=== PATIENT | male | born 1960 | race Caucasian/White ===

== ENCOUNTER 2021-03-11 12:01 | Emergency (ER) | payer BC ==
[2021-03-11] MEDS ORDERED: Aspirin 81 MG Tab.Chew PO ONE (12:16)
[2021-03-11] MEDS ORDERED: Metoprolol Tartrate 50 MG Tab PO ONE (12:19)
--- NOTE | 2021-03-11 12:25 | EDM.PDOC ---
ED HPI GENERAL MEDICAL PROBLEM - General Chief Complaint: Cardiovascular Problem Stated Complaint: SHORTNESS OF BREATH Time Seen by Provider: 03/11/21 12:10 Source of Information: Reports: Patient, Old Records, RN History Limitations: Reports: No Limitations - History of Present Illness INITIAL COMMENTS - FREE TEXT/NARRATIVE: 61 yo male presented to the clinic today for about 2 weeks of NGUYEN and orthopnea and was referred to the ER. Is not aware of a hx of HTN, but his last BP check was about 2 yrs ago. Is not aware of fast or irregular heart beats. No chest pain. Has never smoked. Onset: Gradual Duration: Week(s): (2), Getting Worse Location: Reports: Chest Quality: Reports: Other (no pain) Severity: Mild (SOB) Improves with: Reports: Rest Worsens with: Reports: Movement (exertion) Context: Reports: Other (See HPI) Associated Symptoms: Reports: Shortness of Breath. Denies: Chest Pain, Cough, Fever/Chills, Nausea/Vomiting Treatments RN CRITICAL CARE: Reports: Other (see below) (none) - Related Data Allergies Allergy/AdvReac Type Severity Reaction Status Date / Time No Known Allergies Allergy Verified 07/02/13 20:12 Home Meds: Home Meds Albuterol [Proventil HFA] 2 puff INH Q4H PRN #1 ea 03/11/21 [Rx] dilTIAZem HCL [Diltiazem 24Hr ER] 360 mg PO DAILY #15 cap.er.24h 03/11/21 [Rx] metFORMIN HCl [Metformin HCl ER] 1,000 mg PO BID #120 tab.er.24h 03/11/21 [Rx] Past Medical History - Past Health History Medical/Surgical History: Denies Medical/Surgical History Social & Family History - Tobacco Use Tobacco Use Status *Q: Never Tobacco User - Caffeine Use Caffeine Use: Reports: Soda - Recreational Drug Use Recreational Drug Use: No ED ROS GENERAL - Review of Systems Review Of Systems: See Below Constitutional: Reports: No Symptoms HEENT: Reports: No Symptoms Respiratory: Reports: Shortness of Breath Cardiovascular: Reports: Dyspnea on Exertion, Orthopnea. Denies: Chest Pain, Palpitations Endocrine: Reports: No Symptoms GI/Abdominal: Reports: No Symptoms : Reports: No Symptoms Musculoskeletal: Reports: No Symptoms Skin: Reports: No Symptoms ED EXAM, GENERAL - Physical Exam Exam: See Below Exam Limited By: No Limitations General Appearance: Alert, WD/WN, No Apparent Distress, Obese Eye Exam: Bilateral Eye: Normal Inspection Ears: Normal External Exam, Normal Canal, Hearing Grossly Normal Ear Exam: Bilateral Ear: Auricle Normal, Canal Normal Nose: Normal Inspection, No Blood Throat/Mouth: Normal Inspection, Normal Lips, Normal Oropharynx, No Airway Compromise Head: Atraumatic, Normocephalic Neck: Normal Inspection Respiratory/Chest: No Respiratory Distress, Lungs Clear, Normal Breath Sounds, No Accessory Muscle Use Cardiovascular: Regular Rate, Rhythm, No Edema GI/Abdominal: Normal Bowel Sounds, Soft, Non-Tender, No Distention Extremities: Normal Inspection, Normal Range of Motion, Non-Tender, No Pedal Edema Neurological: Alert, Oriented, CN II-XII Intact, Normal Cognition, No Motor/Sensory Deficits Psychiatric: Normal Affect, Normal Mood Skin Exam: Warm, Dry, Intact, Normal Color, No Rash #1 Interpretation EKG Date: 03/11/21 Time: 12:15 Rhythm: A-Fib Rate (Beats/Min): 141 [place]: Normal P-Wave: Absent QRS: Normal ST-T: Normal QT: Normal Comparison: NA - No Prior EKG Course - Vital Signs Last Recorded V/S: Last Vital Signs Temp 36.3 C 03/11/21 12:18 Pulse 123 H 03/11/21 12:24 Resp 19 03/11/21 12:18 BP 158/101 H 03/11/21 12:24 Pulse Ox 97 03/11/21 12:18 - Orders/Labs/Meds Orders: Active Orders 24 hr Category Date Time Status Cardiac Monitoring [RC] .As Directed Care 03/11/21 12:15 Active RT Aerosol Therapy [RC] ASDIRECTED Care 03/11/21 13:45 Active EKG 12 Lead [EK] Routine Ther 03/11/21 12:16 Ordered Labs: Laboratory Tests 03/11/21 03/11/21 Range/Units 12:25 12:25 WBC 8.5 (4.5-11.0) K/uL RBC 4.86 (4.30-5.90) M/uL Hgb 14.1 (12.0-15.0) g/dL Hct 42.6 (40.0-54.0) % MCV 88 (80-98) fL MCH 29 (27-31) pg MCHC 33 (32-36) % Plt Count 189 (150-400) K/uL Sodium 135 L (140-148) mmol/L Potassium 4.1 (3.6-5.2) mmol/L Chloride 99 L (100-108) mmol/L Carbon Dioxide 28 (21-32) mmol/L Anion Gap 12.1 (5.0-14.0) mmol/L BUN 10 (7-18) mg/dL Creatinine 1.0 (0.8-1.3) mg/dL Est Cr Clr Drug Dosing 70.89 mL/min Estimated GFR (MDRD) > 60 (>60) Glucose 221 H (74-106) mg/dL Calcium 8.7 (8.5-10.1) mg/dL Troponin I < 0.017 (0.000-0.056) ng/mL TSH, Ultra Sensitive 2.070 (0.358-3.740) uIU/mL Meds: Medications Discontinued Medications Generic Name Dose Route Start Last Admin Trade Name Nateq PRN Reason Stop Dose Admin Albuterol 2.5 mg 03/11/21 13:44 03/11/21 14:08 Albuterol 0.083% 2.5 Mg/3 Ml Neb Soln NEB 03/11/21 13:45 2.5 mg ONETIME ONE Administration Aspirin 324 mg 03/11/21 12:16 03/11/21 12:24 Aspirin 81 Mg Tab.Chew PO 03/11/21 12:17 324 mg ONETIME ONE Administration Diltiazem HCl 60 mg 03/11/21 13:05 03/11/21 13:13 Diltiazem Ir 30 Mg Tab PO 03/11/21 13:06 60 mg ONETIME ONE Administration Furosemide 40 mg 03/11/21 13:07 03/11/21 13:12 Furosemide 40 Mg Tab PO 03/11/21 13:08 40 mg ONETIME ONE Administration Metformin HCl 1,000 mg 03/11/21 13:02 03/11/21 13:13 Metformin 500 Mg Tab PO 03/11/21 13:03 1,000 mg ONETIME STA Administration Metoprolol Tartrate 50 mg 03/11/21 12:19 03/11/21 12:24 Metoprolol Tartrate 50 Mg Tab PO 03/11/21 12:20 50 mg ONETIME ONE Administration - Radiology Interpretation Free Text/Narrative:: CXR-small effusions, mild CHF, COPD - Re-Assessments/Exams Free Text/Narrative Re-Assessment/Exam: 03/11/21 14:21 Coughing some improved after albuterol. HR still too fast, but is better. Departure - Departure Time of Disposition: 14:35 Disposition: Home, Self-Care 01 Condition: Fair Clinical Impression: Atrial fibrillation with RVR, Elevated blood sugar, Bronchospasm HTN (hypertension) Qualifiers: Hypertension type: unspecified Qualified Code(s): I10 - Essential (primary) hypertension Instructions: Hyperglycemia, [id number], Bronchospasm, Adult, [id number], Atrial Fibrillation, [id number] Referrals: PCP,None [Primary Care Provider] - Forms: ED Department Discharge Additional Instructions: Take the diltiazem every 24 hrs for reduction of your BP and for controlling your heart rate. Take an aspirin tablet daily with a meal. Use the albuterol as needed for coughing. Avoid smoke exposure. Rest today and tomorrow. Avoid salt or salty foods. Call and schedule an appt to be seen in the clinic Wednesday morning. You will need to have your heart rate and BP reassessed and will likely need to be placed on something stronger than aspirin to reduce the risk of a stroke from your atrial fibrillation. Return as needed. Sepsis Event Note (ED) - Evaluation Sepsis Screening Result: No Definite Risk - Focused Exam Vital Signs: Vital Signs Temp Pulse Pulse Resp BP BP Pulse Ox 03/11/21 12:24 123 H 158/101 H 03/11/21 12:18 36.3 C 136 H 19 158/101 H 97 - My Orders Last 24 Hours: My Active Orders 03/11/21 12:15 Cardiac Monitoring [RC] .As Directed 03/11/21 12:16 EKG 12 Lead [EK] Routine 03/11/21 13:45 RT Aerosol Therapy [RC] ASDIRECTED - Assessment/Plan Last 24 Hours: My Active Orders 03/11/21 12:15 Cardiac Monitoring [RC] .As Directed 03/11/21 12:16 EKG 12 Lead [EK] Routine 03/11/21 13:45 RT Aerosol Therapy [RC] ASDIRECTED
[2021-03-11] MEDS ORDERED: metFORMIN 500 MG Tab PO STA (13:02)
[2021-03-11] MEDS ORDERED: Diltiazem IR 30 MG Tab PO ONE (13:05)
[2021-03-11] MEDS ORDERED: Furosemide 40 MG Tab PO ONE (13:07)
--- NOTE | 2021-03-11 13:11 | CR ---
CHEST: 2 view CLINICAL HISTORY:Atrial fib COMPARISON:None FINDINGS: The heart is enlarged. Pulmonary vascularity is cephalized. There is diffuse interstitial prominence. There is some patchy pleural parenchymal scarring likely some underlying pulmonary fibrosis. There is a minimal effusion on the right.. IMPRESSION: Bilateral interstitial infiltrates is likely some interstitial pulmonary edema from CHF superimposed over some chronic lung changes
[2021-03-11] MEDS ORDERED: Albuterol 0.083% 2.5 MG/3 ML Neb Soln NEB ONE (13:44)
[2021-03-11] MEDS ORDERED: Diltiazem 180 MG Cap.CD PO ONE (14:21)
== END 2021-03-11 14:51 | disposition home or self-care (01) ==
LOC: JP.ED 12:01
DX: J98.01 Acute bronchospasm (principal); I48.91 Unspecified atrial fibrillation; I10 Essential (primary) hypertension; R73.9 Hyperglycemia, unspecified
CPT/HCPCS: 36415; 71046; 80048; 84443; 84484; 85027; 93005; 94640; 99285; A9270

== ENCOUNTER 2021-03-15 22:48 | Emergency (ER) | payer BC ==
[2021-03-15] MEDS ORDERED: Albuterol/Ipratropium 3.0-0.5 MG/3 ML Neb Soln NEB ONE (23:18)
--- NOTE | 2021-03-16 00:50 | EDM.PDOC ---
ED HPI GENERAL MEDICAL PROBLEM - General Chief Complaint: Respiratory Problem Stated Complaint: TROUBLE BREATHING, VOMITING Time Seen by Provider: 03/15/21 23:15 Source of Information: Reports: Patient, Family History Limitations: Reports: No Limitations - History of Present Illness INITIAL COMMENTS - FREE TEXT/NARRATIVE: 61-year-old male with a chronic cough, had some increasing shortness of breath recently and was seen in the clinic initially and sent over to the emergency room with atrial fibrillation with RVR. He was placed on some rate control medications and has a cardiology consultation coming up but tonight he felt like his belly was distended, uncomfortable, he cannot take a deep breath and just did not feel well. No fevers or chills, no nausea or vomiting, no chest pain. Onset: Gradual Duration: Day(s): (Last 2 days) Location: Reports: Abdomen (Fullness and distention, also feels like he is moving less urine) abd pain Pain Score (Numeric/FACES): 2 - Related Data Allergies Allergy/AdvReac Type Severity Reaction Status Date / Time No Known Allergies Allergy Verified 03/15/21 23:27 Home Meds: Home Meds Albuterol [Proventil HFA] 2 puff INH Q4H PRN #1 ea 03/11/21 [Rx] dilTIAZem HCL [Diltiazem 24Hr ER] 360 mg PO DAILY #15 cap.er.24h 03/11/21 [Rx] metFORMIN HCl [Metformin HCl ER] 1,000 mg PO BID #120 tab.er.24h 03/11/21 [Rx] Furosemide [Lasix] 20 mg PO DAILY 03/15/21 [History] Past Medical History - Past Health History Medical/Surgical History: Denies Medical/Surgical History Cardiovascular History: Reports: Afib Respiratory History: Reports: Other (See Below) Other Respiratory History: has had a cough since childhood Endocrine/Metabolic History: Reports: Diabetes, Type II - Infectious Disease History Infectious Disease History: Reports: Chicken Pox Social & Family History - Tobacco Use Tobacco Use Status *Q: Never Tobacco User - Caffeine Use Caffeine Use: Reports: Soda - Recreational Drug Use Recreational Drug Use: No ED ROS GENERAL - Review of Systems Review Of Systems: See Below Constitutional: Reports: Malaise. Denies: Fever, Chills HEENT: Denies: Throat Pain Respiratory: Reports: Shortness of Breath, Cough. Denies: Sputum Cardiovascular: Denies: Chest Pain GI/Abdominal: Reports: Abdominal Pain, Distension. Denies: Nausea, Vomiting : Reports: Other (Decreased urinary frequency and volume) Musculoskeletal: Reports: Other (Feels like his legs are swelling) Skin: Reports: No Symptoms ED EXAM, GENERAL - Physical Exam Exam: See Below Exam Limited By: No Limitations General Appearance: Alert, No Apparent Distress, Other (Frequent cough) Eye Exam: Bilateral Eye: Normal Inspection Head: Atraumatic Respiratory/Chest: No Respiratory Distress, Decreased Breath Sounds, Rales (Scattered diffuse rales and diffuse decreased breath sounds) Cardiovascular: Irregularly Irregular. No: Tachycardia GI/Abdominal: Normal Bowel Sounds, Tender (Minimal discomfort with palpation diffusely but no focal pain or rebound) Extremities: Normal Inspection. No: Pedal Edema (I do not appreciate peripheral edema) Neurological: Alert, Oriented Psychiatric: Normal Affect, Normal Mood Skin Exam: Warm, Dry Course - Vital Signs Last Recorded V/S: Last Vital Signs Temp 97.1 F 03/16/21 00:32 Pulse 65 03/16/21 00:32 Resp 21 H 03/16/21 00:32 BP 124/70 03/16/21 00:32 Pulse Ox 91 L 03/16/21 00:32 - Orders/Labs/Meds Orders: Active Orders 24 hr Category Date Time Status Chest 2V [CR] Routine Exams 03/15/21 23:18 Taken Labs: Laboratory Tests 03/15/21 03/15/21 03/15/21 Range/Units 23:28 23:30 23:30 WBC 9.2 (4.5-11.0) K/uL RBC 4.85 (4.30-5.90) M/uL Hgb 14.2 (12.0-15.0) g/dL Hct 42.2 (40.0-54.0) % MCV 87 (80-98) fL MCH 29 (27-31) pg MCHC 34 (32-36) % Plt Count 216 (150-400) K/uL Neut % (Auto) 72.2 H (36-66) % Lymph % (Auto) 19.7 L (24-44) % [place] % (Auto) 6.9 H (2-6) % Eos % (Auto) 0.9 L (2-4) % Baso % (Auto) 0.3 (0-1) % Sodium 130 L (140-148) mmol/L Potassium 4.0 (3.6-5.2) mmol/L Chloride 95 L (100-108) mmol/L Carbon Dioxide 24 (21-32) mmol/L Anion Gap 15.0 H (5.0-14.0) mmol/L BUN 18 D (7-18) mg/dL Creatinine 1.2 (0.8-1.3) mg/dL Est Cr Clr Drug Dosing 59.07 mL/min Estimated GFR (MDRD) > 60 (>60) Glucose 177 H (74-106) mg/dL Calcium 8.9 (8.5-10.1) mg/dL Total Bilirubin 1.3 H (0.2-1.0) mg/dL AST 21 (15-37) U/L ALT 29 (12-78) U/L Alkaline Phosphatase 87 (46-116) U/L Troponin I < 0.017 (0.000-0.056) ng/mL Total Protein 7.5 (6.4-8.2) g/dL Albumin 3.6 (3.4-5.0) g/dL Globulin 3.9 H (2.3-3.5) g/dL Albumin/Globulin Ratio 0.9 L (1.2-2.2) SARS CoV-2 RNA Rapid KEHINDE Negative Meds: Medications Discontinued Medications Generic Name Dose Route Start Last Admin Trade Name Freq PRN Reason Stop Dose Admin Albuterol/Ipratropium 3 ml 03/15/21 23:18 03/15/21 23:52 Albuterol/Ipratropium 3.0-0.5 Mg/3 Ml Neb Soln NEB 03/15/21 23:19 3 ml ONETIME ONE Administration - Re-Assessments/Exams Free Text/Narrative Re-Assessment/Exam: 03/16/21 00:48 Covid was tested and was negative, then the patient was given a DuoNeb which helped his breathing. 2 view chest x-ray was stable from 3 days ago. CBC CMP and troponin were all negative and reassuring. A CT of the abdomen and pelvis was then obtained without contrast 03/16/21 04:04 Preliminary report: Small bilateral effusions with interlobular septal thickening. This suggests pulmonary edema. No bowel obstruction, free air, or drainable fluid collection in the abdomen/pelvis. No pneumatosis. Normal caliber appendix. Ventral wall abdominal hernia containing fat. No enteric compromise. Patient has only taken 1 dose of Lasix so far, started today. I think he has an element of reactive airway disease or pulmonary fibrosis as well, so will be placed on a Medrol Dosepak but I also want him to double the Lasix to 40 mg a day for the next 2 or 3 days. Instead of waiting for his cardiology consult in 1 month, I asked him to recheck with his primary provider next week. His atrial fibrillation is still present but his rate is well controlled. Departure - Departure Time of Disposition: 01:34 Disposition: Home, Self-Care 01 Clinical Impression: Pleural effusion CHF (congestive heart failure) Qualifiers: Heart failure type: combined systolic and diastolic Heart failure chronicity: acute on chronic Qualified Code(s): I50.43 - Acute on chronic combined systolic (congestive) and diastolic (congestive) heart failure - Discharge Information Instructions: Pleural Effusion, Heart Failure, Diagnosis, [id number] Referrals: PCP,None [Primary Care Provider] - Forms: ED Department Discharge Care Plan Goals: Take tapering steroids as directed starting in the morning, take 40 mg of furosemide a day instead of 20 mg as prescribed for at least the next 2 or 3 days. Avoid extra salt intake, and recheck next week with your primary provider. Return sooner if worsening such as fever or increased difficulty breathing. Sepsis Event Note (ED) - Evaluation Sepsis Screening Result: Possible Sepsis Risk - Focused Exam Vital Signs: Vital Signs Temp Pulse Resp BP Pulse Ox 03/16/21 00:32 97.1 F 65 21 H 124/70 91 L 03/15/21 23:58 82 34 H 141/93 H 88 L 03/15/21 23:15 97.3 F 84 18 159/83 H 89 L 03/15/21 23:06 97.3 F 84 18 159/83 H 89 L - My Orders Last 24 Hours: My Active Orders 03/15/21 23:18 Chest 2V [CR] Routine - Assessment/Plan Last 24 Hours: My Active Orders 03/15/21 23:18 Chest 2V [CR] Routine
--- NOTE | 2021-03-16 02:08 | CRLCT ---
For Patients: As a result of the Century Cures Act, medical imaging exams and procedure reports are released immediately into your electronic medical record. You may view this report before your referring provider. If you have questions, please contact your health care provider. INDICATION: Distension. TECHNIQUE: CT abdomen and pelvis without contrast. COMPARISON: None. FINDINGS: Lower chest: Heart size is within normal limits. No pericardial effusion. There are small bilateral pleural effusions with resultant mild compressive bibasilar atelectasis, as well as interlobular septal thickening. These findings suggest interstitial edema. Clinically correlate. Liver: The unenhanced liver appears unremarkable. Spleen: Normal size. Pancreas: The unenhanced pancreas appears unremarkable. Gallbladder and bile ducts: No calcified stones are seen within the gallbladder. No significant bile duct dilatation. Kidneys: The unenhanced kidneys are unremarkable. Specifically, no hydronephrosis. Adrenal glands: Unremarkable. GI tract: The stomach is unremarkable. Incidental duodenal diverticuli. No abnormally dilated small or large bowel. Normal appendix. Vascular structures: Mild atherosclerotic changes. Normal caliber abdominal aorta. Lymph nodes: No pathologically enlarged lymph nodes are identified on this unenhanced study. Miscellaneous: Moderate-sized fat containing umbilical hernia, without evidence of an acute complication. No free air. No free fluid is seen in either the abdomen or pelvis. Pelvic Organs: Unremarkable urinary bladder and prostate. Bones: No acute abnormality. Degenerative changes. Incidental note of transitional lumbosacral anatomy. IMPRESSION: 1. No evidence of an acute abnormality in the abdomen or pelvis on this unenhanced study. 2. Incidental nonacute findings in the abdomen and pelvis as noted above. 3. Interstitial edema and small bilateral pleural effusions are noted in the lower chest, suggestive of pulmonary edema. Clinically correlate. Please note that all CT scans at this facility use dose modulation, iterative reconstruction, and/or weight-based dosing when appropriate to reduce radiation dose to as low as reasonably achievable. Dictated by Brant Mathew MD @ 03/17/2021 3:03:51 PM (Electronically Signed)
--- NOTE | 2021-03-17 12:35 | CR ---
CHEST: 2 view CLINICAL HISTORY:Atrial fibrillation COMPARISON:03/11/2021 Findings: Heart is enlarged. Pulmonary vascularity is mildly some cephalized. There is some diffuse interstitial prominence. This is increased slightly since prior study. Some of this may be chronic. There is blunting of the right costophrenic angle similar to prior study. Impression: Cardiomegaly with vascular cephalization and interstitial prominence suggests some ongoing CHF. There is slight increase in compared to prior study. Some of this may be chronic. Small right pleural effusion
== END 2021-03-16 01:36 | disposition home or self-care (01) ==
LOC: JP.ED 22:48
DX: J90 Pleural effusion, not elsewhere classified (principal); I50.43 Acute on chronic combined systolic (congestive) and diastolic (congestive) heart failure; I48.91 Unspecified atrial fibrillation; E11.9 Type 2 diabetes mellitus without complications; Z79.84 Long term (current) use of oral hypoglycemic drugs; Z79.899 Other long term (current) drug therapy; Z20.822 Contact with and (suspected) exposure to COVID-19
CPT/HCPCS: 36415; 71046; 71046-26; 74176; 80053; 84484; 85025; 94640; 99285-25; J7620-GY; U0002

== ENCOUNTER 2022-02-07 15:27 | Emergency (ER) | payer BC ==
[2022-02-07 18:48] LABS: ESTIMATED GFR 97 mL/min (>60)
== END 2022-02-07 19:44 | disposition home or self-care (01) ==
LOC: JP.ED 15:27
DX: R53.83 Other fatigue (principal); B34.9 Viral infection, unspecified; I10 Essential (primary) hypertension; E11.9 Type 2 diabetes mellitus without complications; Z79.899 Other long term (current) drug therapy; Z79.84 Long term (current) use of oral hypoglycemic drugs; Z79.01 Long term (current) use of anticoagulants; Z20.822 Contact with and (suspected) exposure to COVID-19
CPT/HCPCS: 36415; 71045; 71045-26; 80053; 82728; 83615; 83735; 84145; 85025; 85379; 85651; 86140; 99281; 99283; U0002

== ENCOUNTER 2022-09-22 07:00 | Day surgery (SDC) | payer BC ==
[~2022-09-22 07:00] MED LIST: Lactated Ringers 1,000 ML IV SCH
[2022-09-22] MEDS ORDERED: fentaNYL 50 MCG/ML SDV ONE (07:23)
[2022-09-22] MEDS ORDERED: Propofol 200 MG/20 ML SDV ONE (07:23)
[2022-09-22] MEDS ORDERED: Midazolam 1 MG/ML 2 ML SDV ONE (07:23)
[2022-09-22] MEDS ORDERED: Lactated Ringers 1,000 ML IV SCH (07:30)
== END 2022-09-22 09:50 | disposition home or self-care (01) ==
LOC: JP.SDS 07:00
PROVIDERS: ATTEND Family Medicine
DX: Z12.11 Encounter for screening for malignant neoplasm of colon (principal); D12.3 Benign neoplasm of transverse colon; D12.4 Benign neoplasm of descending colon; K62.1 Rectal polyp; E11.9 Type 2 diabetes mellitus without complications; I48.91 Unspecified atrial fibrillation; I50.9 Heart failure, unspecified; I42.9 Cardiomyopathy, unspecified
CPT/HCPCS: 45380; 88305; J2250; J2704; J3010; J7120

== ENCOUNTER 2022-09-30 19:27 | Inpatient (IN) | payer BC ==
[2022-09-30] MEDS ORDERED: Lidocaine 1% 5 ML VIAL INJECT ONE (20:57)
[2022-09-30] MEDS ORDERED: Sodium Chloride 0.9% 10 ML Syringe FLUSH PRN (20:58)
[2022-09-30] MEDS ORDERED: Bacitracin Oint 1 GM U/D Packet TOP ONE (20:59)
[2022-09-30] MEDS ORDERED: HYDROmorphone 0.5 MG/0.5 ML Syringe IVPUSH ONE (20:59)
[2022-09-30 21:17] LABS: ESTIMATED GFR 76 mL/min (>60)
[2022-09-30 22:18] LABS: CORONAVIRUS COVID-19 NAA NEGATIVE (NEGATIVE)
[2022-09-30] MEDS ORDERED: Albuterol 0.083% 2.5 MG/3 ML Neb Soln NEB PRN (23:15)
[2022-09-30] MEDS ORDERED: Ondansetron 4 MG/2 ML SDV IV PRN (23:15)
[2022-09-30] MEDS ORDERED: HYDROmorphone 0.5 MG/0.5 ML Syringe IVPUSH PRN (23:15)
[2022-09-30] MEDS ORDERED: Enoxaparin 40 MG/0.4 ML Syringe SUBCUT SCH (23:15)
[2022-09-30] MEDS ORDERED: Acetaminophen/HYDROcodone 325-5 MG Tab PO PRN (23:15)
[2022-09-30] MEDS ORDERED: Ondansetron 4 MG Tab.DIS PO PRN (23:15)
[2022-09-30] MEDS ORDERED: Magnesium Hydroxide 400 MG/5 ML Susp 30 ML Cup PO PRN (23:15)
[2022-09-30] MEDS ORDERED: Melatonin 3 MG Tab PO PRN (23:15)
[2022-09-30] MEDS: metFORMIN 500 MG Tab PO SCH (23:39)
[2022-09-30] MEDS: Acetaminophen 325 MG Tab PO PRN (23:39)
[2022-09-30] MEDS: Insulin Lispro 100 Unit/ML 3 ML KwikPen SUBCUT SCH (23:40)
[2022-10-01] MEDS ORDERED: Meropenem 1 GM in Sodium Chloride 0.9% 100 ML IV SCH (00:45)
[2022-10-01] MEDS ORDERED: Insulin Lispro 100 Unit/ML 3 ML KwikPen SUBCUT SCH (07:00)
[2022-10-01] MEDS: Insulin Lispro 100 Unit/ML 3 ML KwikPen SUBCUT SCH ×4 (08:30→21:35)
[2022-10-01] MEDS: Acetaminophen 325 MG Tab PO PRN ×2 (08:31→19:39)
[2022-10-01] MEDS: Meropenem 1 GM in Sodium Chloride 0.9% 100 ML IV SCH ×2 (08:32→16:37)
[2022-10-01] MEDS: Lisinopril 5 MG Tab PO SCH (08:34)
[2022-10-01] MEDS: metFORMIN 500 MG Tab PO SCH ×2 (08:34→16:37)
[2022-10-01] MEDS: Lactobacillus Rhamnosus GG (Probiotic) Cap PO SCH ×2 (08:34→21:36)
[2022-10-01] MEDS: Metoprolol Succinate 50 MG Tab.ER PO SCH (08:35)
[2022-10-01] MEDS ORDERED: Iopamidol 612 MG/ML 100 ML Bottle IV SCH (20:00)
[2022-10-01] MEDS ORDERED: Sodium Chloride 0.9% 50 ML IV SCH (20:00)
[2022-10-01] MEDS: Enoxaparin 40 MG/0.4 ML Syringe SUBCUT SCH (21:37)
[2022-10-02] MEDS: Meropenem 1 GM in Sodium Chloride 0.9% 100 ML IV SCH ×3 (00:08→18:41)
[2022-10-02] MEDS: Acetaminophen 325 MG Tab PO PRN ×4 (04:56→23:11)
[2022-10-02] MEDS: Insulin Lispro 100 Unit/ML 3 ML KwikPen SUBCUT SCH ×2 (08:36→13:42)
[2022-10-02] MEDS: Lactobacillus Rhamnosus GG (Probiotic) Cap PO SCH ×2 (08:40→21:31)
[2022-10-02] MEDS: Metoprolol Succinate 50 MG Tab.ER PO SCH (08:40)
[2022-10-02] MEDS: Lisinopril 5 MG Tab PO SCH (08:40)
[2022-10-02] MEDS: metFORMIN 500 MG Tab PO SCH ×2 (08:40→18:40)
[2022-10-02] MEDS: Enoxaparin 40 MG/0.4 ML Syringe SUBCUT SCH (21:32)
[2022-10-03] MEDS: Meropenem 1 GM in Sodium Chloride 0.9% 100 ML IV SCH ×3 (00:38→16:38)
[2022-10-03] MEDS: Acetaminophen 325 MG Tab PO PRN ×3 (04:39→21:34)
[2022-10-03] MEDS: metFORMIN 500 MG Tab PO SCH ×2 (08:17→17:23)
[2022-10-03] MEDS: Lactobacillus Rhamnosus GG (Probiotic) Cap PO SCH ×2 (08:18→21:34)
[2022-10-03] MEDS: Lisinopril 5 MG Tab PO SCH (08:18)
[2022-10-03] MEDS: Metoprolol Succinate 50 MG Tab.ER PO SCH (08:18)
[2022-10-03] MEDS: SEMAGLUTIDE 7 MG PO SCH (14:40)
[2022-10-03] MEDS ORDERED: Ketorolac 30 MG/ML SDV IVPUSH ONE (16:08)
[2022-10-03] MEDS: Enoxaparin 40 MG/0.4 ML Syringe SUBCUT SCH (21:34)
[2022-10-04] MEDS: Meropenem 1 GM in Sodium Chloride 0.9% 100 ML IV SCH ×2 (00:16→08:38)
[2022-10-04] MEDS: Acetaminophen 325 MG Tab PO PRN ×2 (04:15→11:59)
[2022-10-04] MEDS: SEMAGLUTIDE 7 MG PO SCH ×2 (07:52→08:38)
[2022-10-04] MEDS: Lactobacillus Rhamnosus GG (Probiotic) Cap PO SCH (08:37)
[2022-10-04] MEDS: metFORMIN 500 MG Tab PO SCH (08:37)
[2022-10-04] MEDS: Metoprolol Succinate 50 MG Tab.ER PO SCH (08:38)
[2022-10-04] MEDS: Lisinopril 5 MG Tab PO SCH (08:38)
[2022-10-04] MEDS ORDERED: Sodium Chloride 0.9% 50 ML IV SCH (10:00)
[2022-10-04] MEDS ORDERED: Iopamidol 612 MG/ML 100 ML Bottle IV PRN (10:30)
== END 2022-10-04 14:00 | DRG 952 ==
LOC: JP.ED 19:27 → JP.MS 22:15 → OBSVTOIN 10-02 11:30
PROVIDERS: ADMIT Internal Medicine; ATTEND Internal Medicine
PROC: 0SCM0ZZ Extirpation of Matter from Right Metatarsal-Phalangeal Joint, Open Approach (ICD-10-PCS; principal; 2022-09-30)
DX: E11.628 Type 2 diabetes mellitus with other skin complications (principal); L03.115 Cellulitis of right lower limb; E11.42 Type 2 diabetes mellitus with diabetic polyneuropathy; L02.611 Cutaneous abscess of right foot; I48.91 Unspecified atrial fibrillation; S90.851A Superficial foreign body, right foot, initial encounter; L08.9 Local infection of the skin and subcutaneous tissue, unspecified; I50.22 Chronic systolic (congestive) heart failure; Z20.822 Contact with and (suspected) exposure to COVID-19; E66.9 Obesity, unspecified; E78.5 Hyperlipidemia, unspecified; I42.9 Cardiomyopathy, unspecified; Z89.421 Acquired absence of other right toe(s); Z79.84 Long term (current) use of oral hypoglycemic drugs; Z79.899 Other long term (current) drug therapy; Z68.34 Body mass index [BMI] 34.0-34.9, adult
CPT/HCPCS: 0241U; 10120; 36415; 73630-26-RT; 73630-RT; 73701-RT; 76000; 80048; 80053; 80202; 82947; 83605; 85025; 85027; 86140; 87040; 90686; 96361; 96365; 96366; 96367; 96372; 96375; 96376; 97162-GP; 99222; 99232; 99239; 99284-25; 99285; A9270-GY; G0008; G0378; J1170; J1650; J1815; J1885; J2185; J3370; J3490; J7040; J7050; Q9967

== ENCOUNTER 2022-12-12 06:54 | Emergency (ER) | payer BC ==
[2022-12-12] MEDS ORDERED: Ondansetron 4 MG/2 ML SDV IVPUSH ONE (07:43)
[2022-12-12] MEDS ORDERED: Sodium Chloride 0.9% 1,000 ML IV SCH (07:45)
[2022-12-12 07:49] LABS: BASE EXCESS VENOUS 0.5 mm/L; BICARBONATE,VENOUS 23.1 mmol/L; HEMATOCRIT 40.1 % (38.4-49.7); HEMOGLOBIN 13.8 g/dL (12.9-16.9); MEAN CORPUSCULAR HEMOGLOBIN 29.4 pg (31.6-35.5); MEAN CORPUSCULAR HGB CONC 34.4 g/dL (31.6-35.5); MEAN CORPUSCULAR VOLUME 85.5 fL (81.4-99.0); METHEMOGLOBIN 0.7 %; O2 SATURATION VENOUS 88.7; OXYHEMOGLOBIN 85.4 %; PCO2 VENOUS 32.7 mm/Hg; PH,VENOUS 7.463 (7.350-7.450); PO2 VENOUS 50.4 mm/Hg; RED BLOOD CELL COUNT 4.69 M/uL (4.14-5.76); TOTAL HEMOGLOBIN 14.3 g/dL (13.5-18.0); WHITE BLOOD CELL COUNT,WBC 12.6 K/uL (3.2-11.0)
[2022-12-12] MEDS ORDERED: Acetaminophen 325 MG Tab PO ONE (08:03)
[2022-12-12 08:10] LABS: A/G RATIO 0.8 (1.2-2.2); ALANINE AMINOTRANSFERASE,ALT 26 U/L (12-78); ALBUMIN 3.4 g/dL (3.4-5.0); ALKALINE PHOSPHATASE 110 U/L (46-116); ASPARTATE AMNIOTRANSFERASE,AST 16 U/L (15-37); BILIRUBIN TOTAL 1.5 mg/dL (0.2-1.0); BLOOD UREA NITROGEN,BUN 14 mg/dL (7-18); CALCIUM 8.6 mg/dL (8.5-10.1); CARBON DIOXIDE,CO2 24 mmol/L (21-32); CHLORIDE,CL 100 mmol/L (100-108); EST CRCL DRUG DOSING (CG) 75.05 mL/min; ESTIMATED GFR 86 mL/min (>60); GLUCOSE RANDOM 238 mg/dL (74-106); POTASSIUM,K 4.3 mmol/L (3.6-5.2); PROTEIN TOTAL,TP 7.6 g/dL (6.4-8.2); SODIUM,NA 134 mmol/L (140-148)
[2022-12-12 08:11] LABS: ANION GAP 14.3 mmol/L (5.0-14.0); MAGNESIUM 1.6 mg/dL (1.8-2.4)
[2022-12-12] MEDS ORDERED: Magnesium Sulfate/Water 2 GM in Premix Bag 1 BAG IV ONE (08:22)
[2022-12-12] MEDS ORDERED: Sodium Chloride 0.9% 500 ML IV ONE (10:35)
[2022-12-12 12:04] LABS: APPEARANCE,URINE SLIGHTLY CLOUDY (CLEAR); BILIRUBIN,URINE NEGATIVE (NEGATIVE); COLOR,URINE YELLOW (YELLOW); GLUCOSE,URINE 500 mg/dL (NEGATIVE); KETONES,URINE NEGATIVE (NEGATIVE); LEUKOCYTE ESTERASE,URINE NEGATIVE (NEGATIVE); NITRITE,URINE NEGATIVE (NEGATIVE); OCCULT BLOOD,URINE NEGATIVE (NEGATIVE); PROTEIN,URINE TRACE mg/dL (NEGATIVE); UROBILINOGEN,URINE 0.2 EU/dL (0.2-1.0)
[2022-12-12 12:21] LABS: AMORPHOUS SEDIMENT,URINE NOT SEEN; BACTERIA,URINE NOT SEEN; EPITHELIAL CELLS,URINE FEW; MUCUS,URINE FEW; RBC,URINE 0-5 (0-5); WBC,URINE 0-5 (0-5)
== END 2022-12-12 12:40 | disposition home or self-care (01) ==
LOC: JP.ED 06:54
DX: G44.209 Tension-type headache, unspecified, not intractable (principal); E86.0 Dehydration; R11.2 Nausea with vomiting, unspecified; E11.9 Type 2 diabetes mellitus without complications; I48.91 Unspecified atrial fibrillation; I10 Essential (primary) hypertension; Z79.899 Other long term (current) drug therapy; Z79.84 Long term (current) use of oral hypoglycemic drugs; Z20.822 Contact with and (suspected) exposure to COVID-19
CPT/HCPCS: 36415; 80053; 80307; 81001; 82803; 83605; 83690; 83735; 84145; 85027; 87635; 96361; 96365; 96366; 96375; 99284; A9270; J2405; J3475; J7030; J7040; U0002

== ENCOUNTER 2022-12-12 17:00 | Inpatient (IN) | payer BC ==
[2022-12-12] MEDS ORDERED: cefTRIAXone 1 GM in Sodium Chloride 0.9% 50 ML IV ONE ×2 (17:36→17:48)
[2022-12-12] MEDS ORDERED: Ondansetron 4 MG/2 ML SDV IVPUSH ONE (17:36)
[2022-12-12] MEDS ORDERED: Sodium Chloride 0.9% 1,000 ML IV SCH (17:45)
[2022-12-12 17:51] LABS: BASE EXCESS VENOUS -0.2 mm/L; BICARBONATE,VENOUS 23.6 mmol/L; CARBOXYHEMOGLOBIN 3.4 % (0.0-1.6); METHEMOGLOBIN 0.6 %; O2 SATURATION VENOUS 76.2; OXYHEMOGLOBIN 73.2 %; PCO2 VENOUS 38.1 mm/Hg; PH,VENOUS 7.409 (7.350-7.450); PO2 VENOUS 40.3 mm/Hg; TOTAL HEMOGLOBIN 13.9 g/dL (13.5-18.0)
[2022-12-12 17:52] LABS: HEMATOCRIT 39.6 % (38.4-49.7); HEMOGLOBIN 13.5 g/dL (12.9-16.9); MEAN CORPUSCULAR HEMOGLOBIN 29.6 pg (31.6-35.5); MEAN CORPUSCULAR HGB CONC 34.1 g/dL (31.6-35.5); MEAN CORPUSCULAR VOLUME 86.8 fL (81.4-99.0); RED BLOOD CELL COUNT 4.56 M/uL (4.14-5.76)
[2022-12-12 18:09] LABS: INR 1.1; PROTHROMBIN TIME 11.4 sec (9.2-10.6)
[2022-12-12 18:19] LABS: A/G RATIO 0.7 (1.2-2.2); ALANINE AMINOTRANSFERASE,ALT 23 U/L (12-78); ALBUMIN 3.2 g/dL (3.4-5.0); ALKALINE PHOSPHATASE 100 U/L (46-116); ASPARTATE AMNIOTRANSFERASE,AST 17 U/L (15-37); BILIRUBIN TOTAL 1.7 mg/dL (0.2-1.0); BLOOD UREA NITROGEN,BUN 16 mg/dL (7-18); CALCIUM 8.3 mg/dL (8.5-10.1); CARBON DIOXIDE,CO2 26 mmol/L (21-32); CHLORIDE,CL 101 mmol/L (100-108); CREATININE 1.2 mg/dL (0.8-1.3); EST CRCL DRUG DOSING (CG) 58.34 mL/min; ESTIMATED GFR 69 mL/min (>60); GLUCOSE RANDOM 248 mg/dL (74-106); POTASSIUM,K 4.3 mmol/L (3.6-5.2); PRO B-TYPE NATRIUR PEPT,BNPPRO 441 pg/mL (5-125); PROTEIN TOTAL,TP 7.6 g/dL (6.4-8.2); SODIUM,NA 134 mmol/L (140-148)
[2022-12-12 18:26] LABS: ANION GAP 11.3 mmol/L (5.0-14.0)
[2022-12-12] MEDS ORDERED: Acetaminophen 500 MG Tab PO STA (19:35)
[2022-12-12] MEDS ORDERED: HYDROmorphone 1 MG/ML Syringe IVPUSH PRN (20:07)
[2022-12-12] MEDS ORDERED: Magnesium Hydroxide 400 MG/5 ML Susp 30 ML Cup PO PRN (20:07)
[2022-12-12] MEDS ORDERED: Melatonin 3 MG Tab PO PRN (20:07)
[2022-12-12] MEDS ORDERED: Enoxaparin 40 MG/0.4 ML Syringe SUBCUT SCH (20:07)
[2022-12-12] MEDS ORDERED: Ibuprofen 400 MG Tab PO PRN (20:47)
[2022-12-12] MEDS: Sodium Chloride 0.9% 1,000 ML IV SCH (20:53)
[2022-12-12] MEDS: Lactobacillus Rhamnosus GG (Probiotic) Cap PO SCH (20:53)
[2022-12-12] MEDS: Insulin Lispro 100 Unit/ML 3 ML KwikPen SUBCUT SCH (21:40)
[2022-12-12] MEDS ORDERED: Doxycycline 100 MG in Sodium Chloride 0.9% 100 ML IV SCH (21:45)
[2022-12-12] MEDS ORDERED: Ondansetron 4 MG/2 ML SDV IV PRN (23:00)
[2022-12-12] MEDS ORDERED: Ondansetron 4 MG Tab.DIS PO PRN (23:00)
[2022-12-13] MEDS: Acetaminophen 325 MG Tab PO PRN ×3 (03:15→20:10)
[2022-12-13 04:16] LABS: BASOPHILS PERCENT AUTO 0.3 % (0.1-1.3); HEMATOCRIT 36.2 % (38.4-49.7); HEMOGLOBIN 12.4 g/dL (12.9-16.9); IMMATURE GRAN ABSOLUTE AUTO 0.04 K/uL (0.00-0.23); IMMATURE GRAN PERCENT AUTO 0.5 % (0.0-0.7); LYMPHOCYTES PERCENT AUTO 6.8 % (11.4-47.7); MEAN CORPUSCULAR HGB CONC 34.3 g/dL (31.6-35.5); MEAN CORPUSCULAR VOLUME 87.7 fL (81.4-99.0); MONOCYTES ABSOLUTE AUTO 0.48 K/uL (0.20-0.90); MONOCYTES PERCENT AUTO 6.6 % (3.3-12.6); NEUTROPHILS ABSOLUTE AUTO 6.27 K/uL (1.0-7.6); NEUTROPHILS PERCENT AUTO 85.8 % (40.0-78.1); PLATELET COUNT,PLT 124 K/uL (130-375); RED BLOOD CELL COUNT 4.13 M/uL (4.14-5.76); WHITE BLOOD CELL COUNT,WBC 7.3 K/uL (3.2-11.0)
[2022-12-13 04:28] LABS: CALCIUM 7.8 mg/dL (8.5-10.1)
[2022-12-13 05:02] LABS: BASOPHILS ABSOLUTE AUTO 0.02 K/uL (0.00-0.10)
[2022-12-13] MEDS: Sodium Chloride 0.9% 1,000 ML IV SCH (05:43)
[2022-12-13] MEDS: Pantoprazole 40 MG Tab.CR PO SCH (08:41)
[2022-12-13] MEDS: metFORMIN 500 MG Tab PO SCH ×2 (08:41→17:56)
[2022-12-13] MEDS: Lactobacillus Rhamnosus GG (Probiotic) Cap PO SCH ×2 (08:41→20:10)
[2022-12-13] MEDS: Insulin Lispro 100 Unit/ML 3 ML KwikPen SUBCUT SCH (08:44)
[2022-12-13] MEDS: Doxycycline 100 MG in Sodium Chloride 0.9% 100 ML IV SCH ×2 (10:07→21:50)
[2022-12-13] MEDS ORDERED: Sodium Chloride 0.9% 1,000 ML IV SCH (10:45)
[2022-12-13] MEDS: Lisinopril 10 MG Tab PO SCH (10:53)
[2022-12-13] MEDS: Metoprolol Succinate 50 MG Tab.ER PO SCH (10:53)
[2022-12-13] MEDS: Ibuprofen 400 MG Tab PO PRN (14:44)
[2022-12-13] MEDS: Enoxaparin 40 MG/0.4 ML Syringe SUBCUT SCH (20:10)
[2022-12-13] MEDS: Acetaminophen 325 MG Tab PO SCH (20:43)
[2022-12-14] MEDS: Acetaminophen 325 MG Tab PO SCH ×4 (02:10→21:23)
[2022-12-14 05:51] LABS: HEMATOCRIT 36.5 % (38.4-49.7); HEMOGLOBIN 12.3 g/dL (12.9-16.9); MEAN CORPUSCULAR HEMOGLOBIN 29.6 pg (31.6-35.5); MEAN CORPUSCULAR HGB CONC 33.7 g/dL (31.6-35.5); RED BLOOD CELL COUNT 4.15 M/uL (4.14-5.76); WHITE BLOOD CELL COUNT,WBC 5.1 K/uL (3.2-11.0)
[2022-12-14 06:09] LABS: A/G RATIO 0.6 (1.2-2.2); ALANINE AMINOTRANSFERASE,ALT 26 U/L (12-78); ALBUMIN 2.4 g/dL (3.4-5.0); ALKALINE PHOSPHATASE 73 U/L (46-116); ASPARTATE AMNIOTRANSFERASE,AST 34 U/L (15-37); BILIRUBIN TOTAL 0.9 mg/dL (0.2-1.0); BLOOD UREA NITROGEN,BUN 15 mg/dL (7-18); C-REACTIVE PROTEIN 10.39 mg/dL (0.0-0.3); CALCIUM 7.9 mg/dL (8.5-10.1); CARBON DIOXIDE,CO2 26 mmol/L (21-32); CHLORIDE,CL 104 mmol/L (100-108); CREATININE 0.9 mg/dL (0.8-1.3); EST CRCL DRUG DOSING (CG) 77.78 mL/min; ESTIMATED GFR 97 mL/min (>60); GLUCOSE RANDOM 115 mg/dL (74-106); POTASSIUM,K 3.7 mmol/L (3.6-5.2); PROTEIN TOTAL,TP 6.4 g/dL (6.4-8.2); SODIUM,NA 136 mmol/L (140-148)
[2022-12-14 06:24] LABS: ANION GAP 9.7 mmol/L (5.0-14.0)
[2022-12-14] MEDS: Pantoprazole 40 MG Tab.CR PO SCH (07:33)
[2022-12-14] MEDS: metFORMIN 500 MG Tab PO SCH ×2 (07:33→16:29)
[2022-12-14] MEDS ORDERED: Gadoteridol 279.3 MG/ML 20 ML SDV IV SCH (09:45)
[2022-12-14] MEDS: Doxycycline 100 MG in Sodium Chloride 0.9% 100 ML IV SCH ×2 (10:32→21:24)
[2022-12-14] MEDS: Lactobacillus Rhamnosus GG (Probiotic) Cap PO SCH ×2 (10:32→21:22)
[2022-12-14] MEDS: Ibuprofen 400 MG Tab PO PRN (20:10)
[2022-12-14] MEDS: Enoxaparin 40 MG/0.4 ML Syringe SUBCUT SCH (21:23)
[2022-12-15] MEDS: Acetaminophen 325 MG Tab PO SCH ×4 (04:25→21:09)
[2022-12-15] MEDS: Pantoprazole 40 MG Tab.CR PO SCH (07:29)
[2022-12-15] MEDS: metFORMIN 500 MG Tab PO SCH ×2 (07:29→16:43)
[2022-12-15] MEDS: Lactobacillus Rhamnosus GG (Probiotic) Cap PO SCH ×2 (08:45→21:10)
[2022-12-15] MEDS: Doxycycline 100 MG in Sodium Chloride 0.9% 100 ML IV SCH ×2 (10:34→21:09)
[2022-12-15] MEDS ORDERED: HYDROmorphone 0.5 MG/0.5 ML Syringe IVPUSH PRN (10:34)
[2022-12-15] MEDS: Enoxaparin 40 MG/0.4 ML Syringe SUBCUT SCH (21:09)
[2022-12-16] MEDS: Acetaminophen 325 MG Tab PO SCH ×5 (03:49→23:13)
[2022-12-16] MEDS: Pantoprazole 40 MG Tab.CR PO SCH (07:34)
[2022-12-16] MEDS: metFORMIN 500 MG Tab PO SCH ×2 (07:35→17:09)
[2022-12-16] MEDS: Lactobacillus Rhamnosus GG (Probiotic) Cap PO SCH ×2 (08:58→20:54)
[2022-12-16] MEDS: Metoprolol Succinate 50 MG Tab.ER PO SCH (08:58)
[2022-12-16] MEDS: Lisinopril 10 MG Tab PO SCH (08:58)
[2022-12-16] MEDS: Doxycycline 100 MG in Sodium Chloride 0.9% 100 ML IV SCH (10:33)
[2022-12-16] MEDS: Linezolid 600 MG Tab PO SCH ×2 (12:31→20:54)
[2022-12-16] MEDS: Enoxaparin 40 MG/0.4 ML Syringe SUBCUT SCH (20:54)
[2022-12-16] MEDS: Doxycycline 100 MG Cap PO SCH (20:54)
[2022-12-17] MEDS ORDERED: Linezolid 600 MG Tab PO SCH
[2022-12-17] MEDS: Acetaminophen 325 MG Tab PO SCH ×2 (03:40→10:45)
[2022-12-17] MEDS: Pantoprazole 40 MG Tab.CR PO SCH (07:53)
[2022-12-17] MEDS: metFORMIN 500 MG Tab PO SCH (07:54)
[2022-12-17] MEDS: Metoprolol Succinate 50 MG Tab.ER PO SCH (10:44)
[2022-12-17] MEDS: Lisinopril 10 MG Tab PO SCH (10:45)
[2022-12-17] MEDS: Lactobacillus Rhamnosus GG (Probiotic) Cap PO SCH (10:45)
[2022-12-17] MEDS: Doxycycline 100 MG Cap PO SCH (10:45)
[2022-12-17] MEDS: Linezolid 600 MG Tab PO SCH (10:45)
[2022-12-18 15:12] LABS: A. PHAGOCYTOPHILUM IGG Negative (Neg:<1:64); A. PHAGOCYTOPHILUM IGM Negative (Neg:<1:20)
== END 2022-12-17 16:23 | disposition home or self-care (01) | DRG 380 ==
LOC: JP.ED 17:00 → JP.MS 19:39
PROVIDERS: ADMIT Internal Medicine; ATTEND Internal Medicine
DX: E11.621 Type 2 diabetes mellitus with foot ulcer (principal); L03.115 Cellulitis of right lower limb; E11.42 Type 2 diabetes mellitus with diabetic polyneuropathy; D69.6 Thrombocytopenia, unspecified; L97.519 Non-pressure chronic ulcer of other part of right foot with unspecified severity; Z20.822 Contact with and (suspected) exposure to COVID-19; E87.1 Hypo-osmolality and hyponatremia; I48.20 Chronic atrial fibrillation, unspecified; E86.0 Dehydration; Z79.84 Long term (current) use of oral hypoglycemic drugs; Z79.899 Other long term (current) drug therapy; Z89.421 Acquired absence of other right toe(s)
CPT/HCPCS: 36415; 71046; 71046-26; 73700-RT; 73723-26-RT; 73723-RT; 80048; 80053; 80202; 82375; 82803; 82947; 83605; 83880; 84145; 84484; 85025; 85027; 85610; 86140; 86666; 87040; 87070; 87077; 87186; 87205; 93005; 93926-26; 93926-RT; 96361; 96365; 96375; 97161-GP; 97760-GP; 99285-25; A9270-GY; A9579; C8929; J0696; J1650; J1815; J2405; J3370; J3490; J7030; J7050; Q0162; U0002

== ENCOUNTER 2023-08-29 05:48 | Emergency (ER) | payer BC, MEDICAID ==
[2023-08-29 07:16] LABS: BASOPHILS PERCENT AUTO 0.2 % (0.1-1.3); EOSINOPHILS PERCENT AUTO 0.2 % (0.0-5.4); HEMATOCRIT 35.2 % (38.4-49.7); HEMOGLOBIN 11.6 g/dL (12.9-16.9); IMMATURE GRAN ABSOLUTE AUTO 0.03 K/uL (0.00-0.23); IMMATURE GRAN PERCENT AUTO 0.3 % (0.0-0.7); LYMPHOCYTES ABSOLUTE AUTO 0.99 K/uL (0.8-3.3); LYMPHOCYTES PERCENT AUTO 11.2 % (11.4-47.7); MEAN CORPUSCULAR HEMOGLOBIN 27.1 pg (31.6-35.5); MEAN CORPUSCULAR VOLUME 82.2 fL (81.4-99.0); MONOCYTES ABSOLUTE AUTO 0.62 K/uL (0.20-0.90); NEUTROPHILS ABSOLUTE AUTO 7.18 K/uL (1.0-7.6); NEUTROPHILS PERCENT AUTO 81.1 % (40.0-78.1); PLATELET COUNT,PLT 258 K/uL (130-375); RED BLOOD CELL COUNT 4.28 M/uL (4.14-5.76); WHITE BLOOD CELL COUNT,WBC 8.9 K/uL (3.2-11.0)
[2023-08-29 07:17] LABS: BASOPHILS ABSOLUTE AUTO 0.02 K/uL (0.00-0.10); EOSINOPHILS ABSOLUTE AUTO 0.02 K/uL (0.00-0.40)
[2023-08-29 07:41] LABS: A/G RATIO 0.4 (1.2-2.2); ALANINE AMINOTRANSFERASE,ALT 8 U/L (12-78); ALBUMIN 2.2 g/dL (3.4-5.0); ALKALINE PHOSPHATASE 84 U/L (46-116); ANION GAP 10.9 mmol/L (5.0-14.0); ASPARTATE AMNIOTRANSFERASE,AST 11 U/L (15-37); BILIRUBIN TOTAL 1.1 mg/dL (0.2-1.0); BLOOD UREA NITROGEN,BUN 13 mg/dL (7-18); CARBON DIOXIDE,CO2 29 mmol/L (21-32); CHLORIDE,CL 90 mmol/L (100-108); CREATININE 1.1 mg/dL (0.8-1.3); EST CRCL DRUG DOSING (CG) 62.83 mL/min; ESTIMATED GFR 76 mL/min (>60); GLUCOSE RANDOM 288 mg/dL (74-106); POTASSIUM,K 3.9 mmol/L (3.6-5.2); PROTEIN TOTAL,TP 8.3 g/dL (6.4-8.2); SODIUM,NA 126 mmol/L (140-148)
[2023-08-29 08:26] LABS: CORONAVIRUS COVID-19 NAA NEGATIVE (NEGATIVE); INFLUENZA A NAA NEGATIVE (NEGATIVE); INFLUENZA B NAA NEGATIVE (NEGATIVE); RESPIRATORY SYNCYTIAL VIR NAA NEGATIVE (NEGATIVE)
[2023-08-29] MEDS: Sodium Chloride 0.9% 1,000 ML IV ONE (08:43)
[2023-08-29] MEDS: Ertapenem 1 GM in Sodium Chloride 0.9% 50 ML IV ONE (08:44)
[2023-08-29] MEDS ORDERED: Glucagon,Human Recombinant 1 MG Vial IM PRN (09:59)
[2023-08-29] MEDS ORDERED: 50% Dextrose in Water 50 ML Syringe IVPUSH PRN (09:59)
[2023-08-29] MEDS: Insulin Regular, Human 100 Units/ML 3 ML Vial IVPUSH ONE (10:14)
== END 2023-08-29 16:27 | disposition critical access hospital (66) ==
LOC: JP.ED 05:48
DX: E11.621 Type 2 diabetes mellitus with foot ulcer (principal); M86.9 Osteomyelitis, unspecified; L03.115 Cellulitis of right lower limb; E11.65 Type 2 diabetes mellitus with hyperglycemia; E87.1 Hypo-osmolality and hyponatremia; I10 Essential (primary) hypertension; Z79.84 Long term (current) use of oral hypoglycemic drugs; Z79.899 Other long term (current) drug therapy
CPT/HCPCS: 0241U; 36415; 73700; 76377; 80053; 82947; 83605; 85025; 87040; 87070; 87205; 96361; 96365; 99285; J1335; J3490; J7030; 87077; 87186; J1815-GY